=== PATIENT | male | born 1965 | race African-American/Black ===

== ENCOUNTER 2018-01-20 15:17 | Emergency (ER) | payer SELFPAY ==
[~2018-01-20] VITALS: Ht 170.2 cm; Wt 94.1 kg
[~2018-01-20 15:17] MED LIST: GLIP5 PO; METF500T7 PO
[2018-01-20] MEDS ORDERED: CYCLOBENZAPRINE HCL 10 MG TABLET PO ONE (18:00)
[2018-01-20] MEDS ORDERED: KETOROLAC TROMETHAMINE 10 MG TABLET PO ONE (18:00)
[2018-01-20 18:18] VITALS: BP 148/71
== END 2018-01-20 18:18 | disposition home or self-care (01) ==
LOC: EMS 15:17
DX: S13.4XXA Sprain of ligaments of cervical spine, initial encounter (principal); I10 Essential (primary) hypertension; E11.9 Type 2 diabetes mellitus without complications; Z91.018 Allergy to other foods; V48.6XXA Car passenger injured in noncollision transport accident in traffic accident, initial encounter; W22.12XA Striking against or struck by front passenger side automobile airbag, initial encounter; Y93.89 Activity, other specified; Y92.89 Other specified places as the place of occurrence of the external cause; Y99.8 Other external cause status
CPT/HCPCS: 72040; 99284